=== PATIENT | male | born 1945 | race Caucasian/White ===

== ENCOUNTER 2017-02-22 18:02 | Inpatient (IN) | payer MEDICARE, OTHER ==
[~2017-02-22] VITALS: Ht 177.8 cm; Wt 99.0 kg
[~2017-02-22 18:02] MED LIST: ASPI81TA82 PO; ATOR40TA PO; BRIM0.2S; CARB1DRO EACH EYE; CARB25TA PO; CHOL1CAP6 PO; CLOP75TA PO; DORZ1SOL2; FENT50DI TD; LANTUSP SQ; LATA0.00 OP; LISI-363 PO; MAXI0.1S3; METHO500 PO; NAPR-576 PO; NOVOINJ SQ; OMPR20CCR PO; QUEN12.5 PO; SIME80CH CHEW; SYNT75TA PO; TAB-TAB PO; TEST200I13 IM; TRAZ300T2 PO; [UNRECOGNIZED DRUG - CODE] PO
[2017-02-22 18:03] VITALS: BP 175/89; PULSE 88; RESP 20; TEMP 97.9; O2SAT 92
[2017-02-22 19:00] VITALS: RESP 16; O2SAT 98
[2017-02-22] MEDS ORDERED: SODIUM CHLOR 0.9% 1000 ML INJ 1,000 ML IV SCH (19:08)
--- NOTE | 2017-02-22 19:10 | PD ---
HPI Chief Complaint: Skin Problem Time Seen by Provider: 19:10 Travel History International Travel<30 days: No Contact w/Intl Traveler<30days: No Traveled to known affect area: No History of Present Illness HPI 71-year-old male with PMH of COPD, DM, HTN, CVA, diminished hearing and chronic back pain presents to ED for evaluation of 2 day history of pain, redness and swelling of the left upper extremity. Patient states that he thinks he was bitten by a bug or possibly scraped by a plant. He endorses swelling and redness of the left upper extremity. Denies fever, chills, chest pain, shortness of breath, abdominal pain, nausea or vomiting, numbness, tingling, weakness or limitations to ROM. He states that he was seen at the [facility] 2 days ago and provided a prescription for Bactrim. He has been compliant with the medication but his symptoms have worsened. PFSH Past Medical History Hx Anticoagulant Therapy: Yes Anxiety: Yes Depression: Yes Cancer: No Cardiovascular Problems: Yes High Cholesterol: Yes COPD: Yes Cerebrovascular Accident: Yes Diabetes: Yes Patient Takes Glucophage: No Diminished Hearing: Yes (BILATERAL HEARING AIDS) Endocrine: Yes GERD: Yes Glaucoma: Yes Genitourinary: No Hypertension: Yes Immune Disorder: No Implanted Vascular Access Dvce: Yes Musculoskeletal: Yes (CHRONIC BACK PAIN) Neurologic: No Psychiatric: Yes Reproductive: No Respiratory: Yes Past Surgical History Body Medical Devices: IM NAILING R TIB Eye Surgery: Yes Oral Surgery: Yes (DENTAL IMPLANTS) Tonsillectomy: Yes Other Surgery: Yes (PINEAL CYST REMOVED/DEVIATED SEPTUM) Social History Alcohol Use: No Tobacco Use: No Substance Use: No Allergies-Medications (Allergen,Severity, Reaction): Coded Allergies: No Known Allergies (Verified , 02/22/17) Reported Meds & Prescriptions Reported Meds & Active Scripts Active Reported Brimonidine Opth Drops (Brimonidine Tartrate) 0.2% Soln 1 Drop LEFT EYE BID Aspir-81 (Aspirin) 81 Mg Tabdr 81 Mg PO DAILY Atorvastatin (Atorvastatin Calcium) 40 Mg Tab 40 Mg PO HS Sinemet (Carbidopa-Levodopa) 25-100 Mg Tab 1 Tab PO HS Refresh Liquigel Opth Drops (Carboxymethylcellulose Sodium Opth Drops) 1% Drops 1 Drop EACH EYE 5 TIMES A DAY Vitamin D3 (Cholecalciferol) 1,000 Unit Tab 1,000 Units PO BID Plavix (Clopidogrel Bisulfate) 75 Mg Tab 75 Mg PO DAILY Benadryl Allergy (Diphenhydramine HCl) 25 Mg Tab 25 Mg PO DAILY PRN Duragesic Patch 72 HR (Fentanyl) 50 Mcg/Hr Patch 50 Mcg T-DERMAL Q72H Remove old patch when new one placed. Novolog Inj (Insulin Aspart) 1,000 Unit/10 Ml Vial 12 Units SQ TIDAC Lantus Inj (Insulin Glargine) 1,000 Unit/10 Ml Vial 55 Units SQ DAILY IN THE MORNING Lantus Inj (Insulin Glargine) 1,000 Unit/10 Ml Vial 24 Units SQ HS Lisinopril 40 Mg Tab 40 Mg PO BID Robaxin (Methocarbamol) 500 Mg Tab 500 Mg PO HS Multi Vitamin (Multiple Vitamin) 1 Tab Tab 1 Tab PO DAILY Naprosyn (Naproxen) 500 Mg Tab 500 Mg PO BID Omeprazole 20 Mg Tab 20 Mg PO DAILY Simethicone 80 Mg Chw 80 Mg CHEW DAILY PRN Levothyroxine (Levothyroxine Sodium) 75 Mcg Tab 75 Mcg PO DAILY Testosterone Enanthate Inj (Testosterone Enanthate) 200 Mg/Ml Inj 200 Mg IM Q30D Trazodone (Trazodone HCl) 300 Mg Tab 300 Mg PO HS Bactrim DS (Sulfamethoxazole-Trimethoprim) 800-160 Mg Tab 1 Tab PO BID Review of Systems Except as stated in HPI: all other systems reviewed are Neg Physical Exam Narrative GENERAL: Well-nourished, well-developed pleasant, nontoxic-appearing white male in no acute distress.. SKIN: Focused skin assessment warm/dry. There is a subcentimeter crusted wound on the dorsal aspect of the left hand. HEAD: Normocephalic. EYES: No scleral icterus. No injection or drainage. NECK: Supple, trachea midline. No JVD or lymphadenopathy. CARDIOVASCULAR: Regular rate and rhythm without murmurs, gallops, or rubs. RESPIRATORY: Breath sounds equal bilaterally. No accessory muscle use. GASTROINTESTINAL: Abdomen soft, non-tender, nondistended. MUSCULOSKELETAL: No cyanosis, or edema. FOCUSED LEFT UPPER EXTREMITY EXAM: 2+ radial pulse. Tender erythema and edema of the hand extending to the mid forearm. Compartments of the forearm are firm but not tense. There is mild to moderate lymphadenopathy in the left axilla. Patient retains full, active, painless range of motion of the extremity. Strong finger to thumb opposition on each digit. Sensation intact to light touch distally. Cap refill less than 2 seconds. BACK: Nontender without obvious deformity. No CVA tenderness. Data Data Last Documented VS Vital Signs Date Time Temp Pulse Resp B/P Pulse Ox O2 Delivery O2 Flow Rate FiO2 02/22/17 19:05 16 02/22/17 19:00 98 Room Air 02/22/17 18:03 97.9 88 175/89 Orders Complete Blood Count With Diff (02/22/17 19:08) Comprehensive Metabolic Panel (02/22/17 19:08) Urinalysis - C+S If Indicated (02/22/17 19:08) Iv Access Insert/Monitor (02/22/17 19:08) Ecg Monitoring (02/22/17 19:08) Oximetry (02/22/17 19:08) Sodium Chlor 0.9% 1000 Ml Inj (Ns 1000 M (02/22/17 19:08) Sodium Chloride 0.9% Flush (Ns Flush) (02/22/17 19:15) Lactic Acid (02/22/17 19:08) Vancomycin Inj (Vancomycin Inj) (02/22/17 19:18) Labs Laboratory Tests Test 02/22/17 02/22/17 02/22/17 19:20 19:30 19:45 Lactic Acid Level 1.0 mmol/L White Blood Count 6.7 TH/MM3 Red Blood Count 4.92 MIL/MM3 Hemoglobin 14.0 GM/DL Hematocrit 42.0 % Mean Corpuscular Volume 85.4 FL Mean Corpuscular Hemoglobin 28.6 PG Mean Corpuscular Hemoglobin 33.5 % Concent Red Cell Distribution Width 14.0 % Platelet Count 142 TH/MM3 Mean Platelet Volume 10.5 FL Neutrophils (%) (Auto) 75.9 % Lymphocytes (%) (Auto) 9.2 % Monocytes (%) (Auto) 8.6 % Eosinophils (%) (Auto) 5.4 % Basophils (%) (Auto) 0.9 % Neutrophils # (Auto) 5.1 TH/MM3 Lymphocytes # (Auto) 0.6 TH/MM3 Monocytes # (Auto) 0.6 TH/MM3 Eosinophils # (Auto) 0.4 TH/MM3 Basophils # (Auto) 0.1 TH/MM3 CBC Comment DIFF FINAL Differential Comment Sodium Level 140 MEQ/L Potassium Level 4.1 MEQ/L Chloride Level 104 MEQ/L Carbon Dioxide Level 28.7 MEQ/L Anion Gap 7 MEQ/L Blood Urea Nitrogen 16 MG/DL Creatinine 1.31 MG/DL Estimat Glomerular Filtration 54 ML/MIN Rate Random Glucose 126 MG/DL Calcium Level 8.4 MG/DL Total Bilirubin 0.3 MG/DL Aspartate Amino Transf 15 U/L (AST/SGOT) Alanine Aminotransferase 28 U/L (ALT/SGPT) Alkaline Phosphatase 88 U/L Total Protein 6.6 GM/DL Albumin 3.5 GM/DL Urine Color YELLOW Urine Turbidity CLEAR Urine pH 7.0 Urine Specific [place] 1.027 Urine Protein 30 mg/dL Urine Glucose (UA) 150 mg/dL Urine Ketones NEG mg/dL Urine Occult Blood NEG Urine Nitrite NEG Urine Bilirubin NEG Urine Urobilinogen 2.0 MG/DL Urine Leukocyte Esterase NEG Urine RBC LESS THAN 1 /hpf Urine WBC 1 /hpf Urine Squamous Epithelial <1 /hpf Cells Urine Mucus FEW /lpf Microscopic Urinalysis Comment CULT NOT INDICATED MDM Medical Decision Making Medical Screen Exam Complete: Yes Emergency Medical Condition: Yes Differential Diagnosis Abscess versus cellulitis versus compartment syndrome versus sepsis versus other Narrative Course 71-year-old male with PMH of COPD, DM, HTN, CVA, diminished hearing and chronic back pain presents to ED for evaluation of 2 day history of pain, redness and swelling of the left upper extremity. Patient states that he thinks he was bitten by a bug or possibly scraped by a plant. Denies fever, chills, chest pain, SOB, abdominal pain, nausea or vomiting, numbness, tingling, weakness or limitations to ROM of the LUE. [facility] states [facility] a [facility] for B[facility], but symptoms have worsened despite compliance with the abx. Vitals reviewed. Physical exam revealed a nontoxic- appearing white male in no acute distress. There is a subcentimeter crusted wound on the dorsal aspect of the LEFT hand. There is a 2+ radial pulse and tender erythema and edema of the LEFT hand extending to the mid forearm. Compartments of the forearm are firm but not tense. There is mild to moderate LAD in the left axilla. Patient retains full, active, painless range of motion of the extremity. Strong finger to thumb opposition on each digit. Neurovascularly intact. IV was established. Labs were drawn. Patient was administered a liter of normal saline and 1 g of vancomycin. CBC: WBC 6.7, 75.9% neutrophils. Hemoglobin 14.0 CMP: BUN 16, creatinine 1.31 Lactic acid: Lactic 1.0 UA: No culture indicated Given the patient's failed outpatient treatment I feel that observation admission and continued antibiotics are warranted at this time. I discussed this plan of care with the patient who is agreeable. I spoke with Dr. Kim who agrees to accept this patient for observation on the medicine service. Please see medicine notes for disposition. Diagnosis Primary Impression: Cellulitis of left upper extremity Nora Cochran Feb 22, 2017 19:10
[2017-02-22] MEDS ORDERED: SODIUM CHLORIDE 0.9% FLUSH 10 ML FLUSH IV FLUSH PRN ×2 (19:15→21:00)
[2017-02-22] MEDS ORDERED: VANCOMYCIN INJ 1,000 MG in SODIUM CHLOR 0.9% 250 ML INJ 250 ML IV STA (19:18)
[2017-02-22 19:45] VITALS: BP 165/78; PULSE 76; RESP 20; O2SAT 94
[2017-02-22] MEDS ORDERED: TRAZ300T2 PO (19:51)
[2017-02-22] MEDS ORDERED: BACT800T5 PO (19:51)
[2017-02-22] MEDS ORDERED: SIME80CH CHEW (19:51)
[2017-02-22] MEDS ORDERED: TEST200I13 IM (19:51)
[2017-02-22] MEDS ORDERED: OMEP20TA PO (19:51)
[2017-02-22] MEDS ORDERED: LEVO75TA3 PO (19:51)
[2017-02-22] MEDS ORDERED: LANTUS2P SQ ×2 (19:52)
[2017-02-22] MEDS ORDERED: LISI40TA PO (19:52)
[2017-02-22] MEDS ORDERED: BENA25TA3 PO (19:52)
[2017-02-22] MEDS ORDERED: FENT50T T-DERMAL (19:52)
[2017-02-22] MEDS ORDERED: PLAV75TA29 PO (19:52)
[2017-02-22] MEDS ORDERED: NOVOLOGP2 SQ (19:52)
[2017-02-22] MEDS ORDERED: METH50TA2 PO (19:52)
[2017-02-22] MEDS ORDERED: MULT-135 PO (19:52)
[2017-02-22] MEDS ORDERED: NAPR500 PO (19:52)
[2017-02-22] MEDS ORDERED: ROBA500T PO (19:52)
[2017-02-22] MEDS ORDERED: VITA100018 PO (19:52)
[2017-02-22 19:53] LABS: AUTOMATED NEUTROPHIL # 5.1 TH/MM3 (1.8-7.7); BASOPHIL # 0.1 TH/MM3 (0-0.2); BASOPHIL % 0.9 % (0.0-2.0); EOSINOPHIL # 0.4 TH/MM3 (0-0.4); EOSINOPHIL % 5.4 % (0.0-4.0); HEMO FLAGS DIFF FINAL; LYMPH % 9.2 % (9.0-44.0); LYMPHOCYTE # 0.6 TH/MM3 (1.0-4.8); MEAN CELL VOLUME 85.4 FL (80.0-100.0); MEAN CORPUSCULAR HEMOGLOBIN 28.6 PG (27.0-34.0); MEAN CORPUSCULAR HGB CONC 33.5 % (32.0-36.0); MONO % 8.6 % (0.0-8.0); NEUT % 75.9 % (16.0-70.0); PLATELET COUNT 142 TH/MM3 (150-450); RED BLOOD COUNT 4.92 MIL/MM3 (4.50-5.90); WHITE BLOOD COUNT 6.7 TH/MM3 (4.0-11.0)
[2017-02-22] MEDS ORDERED: ASPI81TA81 PO (19:55)
[2017-02-22] MEDS ORDERED: CARB1DRO EACH EYE (19:55)
[2017-02-22] MEDS ORDERED: ATOR40TA16 PO (19:55)
[2017-02-22] MEDS ORDERED: SINE25TA PO (19:55)
[2017-02-22] MEDS ORDERED: BRIM0.2S4 LEFT EYE (20:04)
[2017-02-22 20:14] LABS: BLOOD, URINE NEG (NEG); COMMENT (UR) CULT NOT INDICATED; CULTURE IF INDICATED CULT NOT INDICATED; GLUCOSE,URINE 150 mg/dL (NEG); KETONE, URINE NEG (NEG); MUCUS URINE FEW /lpf (OCC); NITRITE,URINE NEG (NEG); SQUAMOUS EPITHELIAL CELL URINE <1 /hpf (0-5); URINE COLOR YELLOW (YELLW/STRAW)
[2017-02-22 20:17] LABS: ANION GAP 7 MEQ/L (5-15); AST (GOT) 15 U/L (15-37); BICARBONATE 28.7 MEQ/L (21.0-32.0); BLOOD UREA NITROGEN 16 MG/DL (7-18); CHLORIDE 104 MEQ/L (98-107); GLOMERULAR FILTRATION RATE 54 ML/MIN (>89); POTASSIUM 4.1 MEQ/L (3.5-5.1); SODIUM (NA) 140 MEQ/L (136-145)
[2017-02-22 20:20] LABS: ALKALINE PHOSPHATASE 88 U/L (45-117); ALT (GPT) 28 U/L (12-78); TOTAL BILIRUBIN ADULT 0.3 MG/DL (0.2-1.0)
--- NOTE | 2017-02-22 20:56 | PD ---
Data Data Last Documented VS Vital Signs Date Time Temp Pulse Resp B/P Pulse Ox O2 Delivery O2 Flow Rate FiO2 02/22/17 19:45 76 20 165/78 94 Room Air 02/22/17 18:03 97.9 Orders Complete Blood Count With Diff (02/22/17 19:08) Comprehensive Metabolic Panel (02/22/17 19:08) Urinalysis - C+S If Indicated (02/22/17 19:08) Iv Access Insert/Monitor (02/22/17 19:08) Ecg Monitoring (02/22/17 19:08) Oximetry (02/22/17 19:08) Sodium Chlor 0.9% 1000 Ml Inj (Ns 1000 M (02/22/17 19:08) Sodium Chloride 0.9% Flush (Ns Flush) (02/22/17 19:15) Lactic Acid (02/22/17 19:08) Vancomycin Inj (Vancomycin Inj) (02/22/17 19:18) Admit Order (Ed Use Only) (02/22/17 20:54) Labs Laboratory Tests Test 02/22/17 02/22/17 02/22/17 19:20 19:30 19:45 Lactic Acid Level 1.0 mmol/L White Blood Count 6.7 TH/MM3 Red Blood Count 4.92 MIL/MM3 Hemoglobin 14.0 GM/DL Hematocrit 42.0 % Mean Corpuscular Volume 85.4 FL Mean Corpuscular Hemoglobin 28.6 PG Mean Corpuscular Hemoglobin 33.5 % Concent Red Cell Distribution Width 14.0 % Platelet Count 142 TH/MM3 Mean Platelet Volume 10.5 FL Neutrophils (%) (Auto) 75.9 % Lymphocytes (%) (Auto) 9.2 % Monocytes (%) (Auto) 8.6 % Eosinophils (%) (Auto) 5.4 % Basophils (%) (Auto) 0.9 % Neutrophils # (Auto) 5.1 TH/MM3 Lymphocytes # (Auto) 0.6 TH/MM3 Monocytes # (Auto) 0.6 TH/MM3 Eosinophils # (Auto) 0.4 TH/MM3 Basophils # (Auto) 0.1 TH/MM3 CBC Comment DIFF FINAL Differential Comment Sodium Level 140 MEQ/L Potassium Level 4.1 MEQ/L Chloride Level 104 MEQ/L Carbon Dioxide Level 28.7 MEQ/L Anion Gap 7 MEQ/L Blood Urea Nitrogen 16 MG/DL Creatinine 1.31 MG/DL Estimat Glomerular Filtration 54 ML/MIN Rate Random Glucose 126 MG/DL Calcium Level 8.4 MG/DL Total Bilirubin 0.3 MG/DL Aspartate Amino Transf 15 U/L (AST/SGOT) Alanine Aminotransferase 28 U/L (ALT/SGPT) Alkaline Phosphatase 88 U/L Total Protein 6.6 GM/DL Albumin 3.5 GM/DL Urine Color YELLOW Urine Turbidity CLEAR Urine pH 7.0 Urine Specific [place] 1.027 Urine Protein 30 mg/dL Urine Glucose (UA) 150 mg/dL Urine Ketones NEG mg/dL Urine Occult Blood NEG Urine Nitrite NEG Urine Bilirubin NEG Urine Urobilinogen 2.0 MG/DL Urine Leukocyte Esterase NEG Urine RBC LESS THAN 1 /hpf Urine WBC 1 /hpf Urine Squamous Epithelial <1 /hpf Cells Urine Mucus FEW /lpf Microscopic Urinalysis Comment CULT NOT INDICATED MDM Medical Record Reviewed: Yes Supervised Visit with SEPIDEH: Yes Interpretation(s) Last Impressions Upper Extremity Ultrasound 02/22/17 0000 Signed Impressions: Service Date/Time: Wednesday, February 22, 2017 23:14 - CONCLUSION: There is evidence of DVT with occlusive thrombus involving the left subclavian and left axillary veins. Tyson Avelar MD Narrative Course I, Dr. Washington, have reviewed the advance practice practitioner's documentation and am in agreement, met with the patient face to face, made the diagnosis, and the medical decision making was done by me. The patient was initially evaluated by Nora, please see her complete history and physical. *My assessment and Findings: The patient is a 71-year-old male who presents to [facility] emergency Department with a cellulitis involving the left hand and forearm as been managed as an outpatient by the [facility] with a course of Bactrim. The patient reports that he believes that it began as a small area that was possibly an insect bite versus scratch from a plant. He reports that the symptoms have worsened in spite of treatment with the antibiotic previously prescribed by the [facility]. Studies were ordered. The patient was started on IV antibiotic. The patient's examination is remarkable for redness, warmth, tenderness of the left forearm suspicious for cellulitis. Given the patient's failure of treatment with outpatient antibiotic regimen, the patient will be admitted to the hospital for continued evaluation and treatment. Diagnosis Primary Impression: Cellulitis of left upper extremity Additional Impression: Swelling of left upper extremity Admitting Information Admitting Physician Requests: Admit Sheela Washington MD Feb 22, 2017 20:56
[2017-02-22] MEDS ORDERED: TEMAZEPAM 15 MG CAP PO PRN (21:00)
[2017-02-22] MEDS ORDERED: NALOXONE HCL 0.4 MG/ML AMP IV PRN (21:00)
[2017-02-22] MEDS: SODIUM CHLORIDE 0.9% FLUSH 10 ML FLUSH IV FLUSH SCH (21:00)
[2017-02-22] MEDS ORDERED: DEXTROSE 50% IN WATER 50 ML VIAL(D50) IV PUSH PRN (21:00)
[2017-02-22] MEDS ORDERED: ACETAMINOPHEN 325 MG TAB PO PRN (21:00)
[2017-02-22] MEDS: INSULIN ASPART SUPPLEMENTAL SCALE SQ SCH (21:00)
[2017-02-22] MEDS ORDERED: GLUCAGON 1 MG/ML VIAL OTHER PRN (21:00)
[2017-02-22] MEDS ORDERED: ONDANSETRON HCL 4 MG/2 ML VIAL IVP PRN (21:00)
--- NOTE | 2017-02-22 21:00 | HHI.HP ---
[facility] Service [facility] Primary [facility] Physician [facility] Admission Diagnosis Cellulitis failed outpt managment Diagnoses: (1) Cellulitis of left upper extremity (2) DM (diabetes mellitus) (3) HTN (hypertension) (4) COPD (chronic obstructive pulmonary disease) (5) History of TIA (transient ischemic attack) (6) Hypothyroidism (7) Glaucoma Chief Complaint: left arm redness, swollen and painful Travel History International Travel<30 Days: No Contact w/Intl Traveler <30 Da: No Traveled to Known Affected Are: No History of Present Illness 71-year-old male with a history of diabetes type 2, CVA presented to the ED for evaluation of the history of worsening painful and swollen left upper extremity. Patient states the morning of Thursday he may have been bitten by a bug versus scrub versus scrapped by a plant. And the following morning he noticed a blister on his arm which progresses to swollen painful and redness with extension of erythema to his forearm on 02/20/16 [facility] and prescribed a by mouth Bactrim DS for which he took 1 tablet twice a day 2 days however without any improvement. He has no numbness or tingling associated. He also denies any febrile episode Review of Systems Other 12 systems reviewed and are negative except for the one mentioned in history of present illness Past Family Social History Past Medical History DM Glaucoma GERD Hypothyroidism HTN h/o TIA COPD Past Surgical History IM NAILING R TIB b/l eye surgery Deviated nasal septum Pilonidal cyst Reported Medications Brimonidine Opth Drops (Brimonidine Tartrate) 0.2% Soln 1 Drop LEFT EYE BID Aspir-81 (Aspirin) 81 Mg Tabdr 81 Mg PO DAILY Atorvastatin (Atorvastatin Calcium) 40 Mg Tab 40 Mg PO HS Sinemet (Carbidopa-Levodopa) 25-100 Mg Tab 1 Tab PO HS Refresh Liquigel Opth Drops (Carboxymethylcellulose Sodium Opth Drops) 1% Drops 1 Drop EACH EYE 5 TIMES A DAY Vitamin D3 (Cholecalciferol) 1,000 Unit Tab 1,000 Units PO BID Plavix (Clopidogrel Bisulfate) 75 Mg Tab 75 Mg PO DAILY Benadryl Allergy (Diphenhydramine HCl) 25 Mg Tab 25 Mg PO DAILY PRN Duragesic Patch 72 HR (Fentanyl) 50 Mcg/Hr Patch 50 Mcg T-DERMAL Q72H Remove old patch when new one placed. Novolog Inj (Insulin Aspart) 1,000 Unit/10 Ml Vial 12 Units SQ TIDAC Lantus Inj (Insulin Glargine) 1,000 Unit/10 Ml Vial 55 Units SQ DAILY IN THE MORNING Lantus Inj (Insulin Glargine) 1,000 Unit/10 Ml Vial 24 Units SQ HS Lisinopril 40 Mg Tab 40 Mg PO BID Robaxin (Methocarbamol) 500 Mg Tab 500 Mg PO HS Multi Vitamin (Multiple Vitamin) 1 Tab Tab 1 Tab PO DAILY Naprosyn (Naproxen) 500 Mg Tab 500 Mg PO BID Omeprazole 20 Mg Tab 20 Mg PO DAILY Simethicone 80 Mg Chw 80 Mg CHEW DAILY PRN Levothyroxine (Levothyroxine Sodium) 75 Mcg Tab 75 Mcg PO DAILY Testosterone Enanthate Inj (Testosterone Enanthate) 200 Mg/Ml Inj 200 Mg IM Q30D Trazodone (Trazodone HCl) 300 Mg Tab 300 Mg PO HS Bactrim DS (Sulfamethoxazole-Trimethoprim) 800-160 Mg Tab 1 Tab PO BID Allergies: Coded Allergies: No Known Allergies (Verified , 02/22/17) Social History Alcohol Use: No Tobacco Use: No Substance Use: No Physical Exam Vital Signs Vital Signs Date Time Temp Pulse Resp B/P Pulse Ox O2 Delivery O2 Flow Rate FiO2 02/22/17 19:45 76 20 165/78 94 Room Air 02/22/17 19:05 16 02/22/17 19:00 16 98 Room Air 02/22/17 18:03 97.9 88 20 175/89 92 Room Air Physical Exam GENERAL: This is a well-nourished, well-developed patient, in no apparent distress. SKIN:Tender erythema and edema of the hand extending to the mid forearm. Compartments of the forearm are firm but not tense. There is mild to moderate lymphadenopathy in the left axilla HEAD: Atraumatic. Normocephalic. No temporal or scalp tenderness. EYES: Pupils equal round and reactive. Extraocular motions intact. No scleral icterus. No injection or drainage. ENT: Nose without bleeding, purulent drainage or septal hematoma. Throat without erythema, tonsillar hypertrophy or exudate. Uvula midline. Airway patent. NECK: Trachea midline. No JVD or lymphadenopathy. Supple, nontender, no meningeal signs. CARDIOVASCULAR: Regular rate and rhythm without murmurs, gallops, or rubs. RESPIRATORY: Clear to auscultation. Breath sounds equal bilaterally. No wheezes , rales, or rhonchi. GASTROINTESTINAL: Abdomen soft, non-tender, nondistended. No hepato-splenomegaly , or palpable masses. No guarding. MUSCULOSKELETAL: Extremities without clubbing, cyanosis, or edema. No joint tenderness, effusion, or edema noted. No calf tenderness. Negative Homans sign bilaterally. NEUROLOGICAL: Awake and alert. Cranial nerves II through XII intact. Motor and sensory grossly within normal limits. Five out of 5 muscle strength in all muscle groups. Normal speech. Laboratory Laboratory Tests Test 02/22/17 02/22/17 02/22/17 19:20 19:30 19:45 Lactic Acid Level 1.0 White Blood Count 6.7 Red Blood Count 4.92 Hemoglobin 14.0 Hematocrit 42.0 Mean Corpuscular Volume 85.4 Mean Corpuscular Hemoglobin 28.6 Mean Corpuscular Hemoglobin 33.5 Concent Red Cell Distribution Width 14.0 Platelet Count 142 Mean Platelet Volume 10.5 Neutrophils (%) (Auto) 75.9 Lymphocytes (%) (Auto) 9.2 Monocytes (%) (Auto) 8.6 Eosinophils (%) (Auto) 5.4 Basophils (%) (Auto) 0.9 Neutrophils # (Auto) 5.1 Lymphocytes # (Auto) 0.6 Monocytes # (Auto) 0.6 Eosinophils # (Auto) 0.4 Basophils # (Auto) 0.1 CBC Comment DIFF FINAL Differential Comment Sodium Level 140 Potassium Level 4.1 Chloride Level 104 Carbon Dioxide Level 28.7 Anion Gap 7 Blood Urea Nitrogen 16 Creatinine 1.31 Estimat Glomerular Filtration 54 Rate Random Glucose 126 Calcium Level 8.4 Total Bilirubin 0.3 Aspartate Amino Transf 15 (AST/SGOT) Alanine Aminotransferase 28 (ALT/SGPT) Alkaline Phosphatase 88 Total Protein 6.6 Albumin 3.5 Urine Color YELLOW Urine Turbidity CLEAR Urine pH 7.0 Urine Specific [place] 1.027 Urine Protein 30 Urine Glucose (UA) 150 Urine Ketones NEG Urine Occult Blood NEG Urine Nitrite NEG Urine Bilirubin NEG Urine Urobilinogen 2.0 Urine Leukocyte Esterase NEG Urine RBC LESS THAN 1 Urine WBC 1 Urine Squamous Epithelial <1 Cells Urine Mucus FEW Microscopic Urinalysis Comment CULT NOT INDICATED Result Diagram: 02/22/17192902/22/171929 Assessment and Plan Problem List: (1) Cellulitis of left upper extremity ICD Code: L03.114 Status: Acute (2) DM (diabetes mellitus) ICD Code: E11.9 Status: Acute (3) HTN (hypertension) ICD Code: I10 Status: Acute (4) Hypothyroidism ICD Code: E03.9 Status: Acute (5) History of TIA (transient ischemic attack) ICD Code: Z86.73 Status: Acute (6) COPD (chronic obstructive pulmonary disease) ICD Code: J44.9 Status: Acute (7) Acute renal failure ICD Code: N17.9 Status: Acute Assessment and Plan 71-year-old male with Cellulitis left upper extremity Failed outpatient therapy -Status post vancomycin 1 in ED -Continue vancomycin and start Rocephin IV daily pending culture report -Check Doppler of upper extremity to rule out thrombosis -Pain management accordingly Mild acute renal failure Gentle IV fluid hydration, monitor BMP History of diabetes type 2 Resume outpatient regimen, start insulin sliding scale with fingerstick blood glucose monitoring Other chronic medical conditions including hyperlipidemia, CAD, glaucoma, CVA: Resume outpatient medications DVT prophylaxis: Bilateral SCDs Code Status Full code Discussed Condition With Patient, ED physician Flynn Kim MD Feb 22, 2017 21:00
[2017-02-22 22:04] VITALS: BP 163/81; PULSE 67; RESP 16; TEMP 97.6; O2SAT 93
[2017-02-22] MEDS ORDERED: SIMETHICONE 80 MG CHEWABLE TAB CHEW PRN (22:30)
[2017-02-22] MEDS ORDERED: Vancomycin Consult Pharmacy 1 EA OTHER SCH (22:45)
[2017-02-22] MEDS ORDERED: VANCOMYCIN 1,000 MG/NS 250 ML IV ONE ×2 (23:00)
[2017-02-22] MEDS ORDERED: fentaNYL 50 MCG/HR PATCH T-DERMAL SCH (23:00)
[2017-02-22] MEDS ORDERED: REMOVE OLD PATCH-FENTANYL T-DERMAL SCH (23:00)
[2017-02-22] MEDS: fentaNYL 50 MCG/HR PATCH T-DERMAL SCH (23:02)
[2017-02-22] MEDS: cefTRIAXone INJ 2,000 MG in SODIUM CHLORIDE 0.9% INJ 100 ML IV SCH (23:03)
--- NOTE | 2017-02-22 23:49 | RADRPT ---
EXAM DATE/TIME: 02/22/2017 23:14 [place] COMPARISON: No previous studies available for comparison. INDICATIONS : Left arm swelling. MEDICAL HISTORY : Chronic obstructive pulmonary disease. Gastroesophageal reflux disease. Hypercholesterolemia. Thyroid disease. Glaucoma. Hearing loss. Cerebrovascular accident. Myocardial infarction. Anticoagulant ther apy. Hypertension. Sleep apnea. Chronic back pain. Diabetes. Depression. Anxiety. Blood transfusion. SURGICAL HISTORY : Tonsillectomy. Right leg surgery. Pineal cyst removal ENCOUNTER: Initial ACUITY: 4 - 6 days PAIN SCORE: 2/10 LOCATION: Left arm. FINDINGS: On today's examination there is evidence of occlusive thrombus involving the left subclavian and left axillary veins. This is characteristic of DVT. The jugular vein is patent. The brachial vein in the left upper arm is patent. The ulnar and radial veins are patent. CONCLUSION: There is evidence of DVT with occlusive thrombus involving the left subclavian and left axillary vein celina Avelar MD on February 22, 2017 at 23:46 Board Certified Radiologist. This report was verified electronically.
[2017-02-23 04:37] VITALS: BP 169/79; PULSE 68; RESP 18; TEMP 97.7; O2SAT 92
[2017-02-23] MEDS: INSULIN ASPART SUPPLEMENTAL SCALE SQ SCH ×4 (06:11→20:55)
[2017-02-23] MEDS: ARTIFICIAL TEARS OPTH SOLN 15 ML BTL EACH EYE SCH ×5 (06:11→20:57)
[2017-02-23 06:41] LABS: AUTOMATED NEUTROPHIL # 3.8 TH/MM3 (1.8-7.7); BASOPHIL # 0.1 TH/MM3 (0-0.2); BASOPHIL % 1.1 % (0.0-2.0); EOSINOPHIL # 0.4 TH/MM3 (0-0.4); EOSINOPHIL % 6.7 % (0.0-4.0); HEMATOCRIT 40.9 % (39.0-51.0); HEMO FLAGS DIFF FINAL; LYMPH % 15.1 % (9.0-44.0); LYMPHOCYTE # 0.9 TH/MM3 (1.0-4.8); MEAN CELL VOLUME 86.2 FL (80.0-100.0); MEAN CORPUSCULAR HGB CONC 32.5 % (32.0-36.0); MONO % 9.8 % (0.0-8.0); NEUT % 67.3 % (16.0-70.0); PLATELET COUNT 120 TH/MM3 (150-450); RED BLOOD COUNT 4.75 MIL/MM3 (4.50-5.90); RED CELL DISTRIBUTION WIDTH 14.2 % (11.6-17.2); WHITE BLOOD COUNT 5.7 TH/MM3 (4.0-11.0)
[2017-02-23 07:04] LABS: ALT (GPT) 27 U/L (12-78); ANION GAP 6 MEQ/L (5-15); AST (GOT) 17 U/L (15-37); BICARBONATE 25.6 MEQ/L (21.0-32.0); BLOOD UREA NITROGEN 14 MG/DL (7-18); CHLORIDE 105 MEQ/L (98-107); GLOMERULAR FILTRATION RATE 66 ML/MIN (>89); SODIUM (NA) 137 MEQ/L (136-145)
[2017-02-23 07:06] LABS: ALKALINE PHOSPHATASE 80 U/L (45-117); TOTAL BILIRUBIN ADULT 0.3 MG/DL (0.2-1.0)
[2017-02-23 08:00] VITALS: BP 195/95; PULSE 70; RESP 20; TEMP 95.7; O2SAT 93
[2017-02-23] MEDS: ENOXAPARIN SODIUM 100 MG/ML SYRINGE SQ SCH ×2 (08:17→20:54)
[2017-02-23] MEDS: LISINOPRIL 20 MG TAB PO SCH ×2 (08:18→20:57)
[2017-02-23] MEDS: PANTOPRAZOLE SOD 20 MG DELAYED RELEASE TAB PO SCH (08:18)
[2017-02-23] MEDS: MULTIVITAMIN TAB PO SCH (08:18)
[2017-02-23] MEDS: SODIUM CHLORIDE 0.9% FLUSH 10 ML FLUSH IV FLUSH SCH ×2 (08:18→20:58)
[2017-02-23] MEDS: BRIMONIDINE TARTRATE 0.2% OPHT SOLN 5 ML BTL LEFT EYE SCH ×2 (08:19→20:57)
[2017-02-23] MEDS: INSULIN DETEMIR 100 UNITS/ML VIAL SQ SCH ×2 (08:20→20:55)
--- NOTE | 2017-02-23 08:56 | HHI.PR ---
Subjective Remarks resting comfortably with no distress. denies pain and no fever. Objective Vitals Vital Signs Date Time Temp Pulse Resp B/P Pulse Ox O2 Delivery O2 Flow Rate FiO2 02/23/17 08:00 95.7 70 20 195/95 93 02/23/17 04:37 97.7 68 18 169/79 92 02/22/17 22:04 97.6 67 16 163/81 93 02/22/17 19:45 76 20 165/78 94 Room Air 02/22/17 19:05 16 02/22/17 19:00 16 98 Room Air 02/22/17 18:03 97.9 88 20 175/89 92 Room Air I/O 02/22/17 02/22/17 02/22/17 02/23/17 02/23/17 02/23/17 07:00 15:00 23:00 07:00 15:00 23:00 Intake Total 240 ml Balance 240 ml Intake Oral 240 ml # Voids 1 Result Diagram: 02/23/17 0530 02/23/17 0530 Imaging Last Impressions Upper Extremity Ultrasound 02/22/17 0000 Signed Impressions: Service Date/Time: Wednesday, February 22, 2017 23:14 - CONCLUSION: There is evidence of DVT with occlusive thrombus involving the left subclavian and left axillary veins. Tyson Avelar MD Objective Remarks GENERAL: This is a well-nourished, well-developed patient, in no apparent distress. CARDIOVASCULAR: Regular rate and regular rhythm without murmurs, gallops, or rubs. RESPIRATORY: Clear to auscultation. Breath sounds equal bilaterally. No wheezes , rales, or rhonchi. GASTROINTESTINAL: Abdomen soft, non-tender, nondistended. Normal, active bowel sounds MUSCULOSKELETAL: swelling, erythema over the left upper extremity NEURO: Alert & Oriented x4 to person, place, time, situation. Moves all ext x4 Procedures none Medications and IVs Current Medications Sodium Chloride (NS 1000 ml Inj) 1,000 ml @ 1,000 mls/hr Q1H IV Last administered on 02/22/17t 19:23; Start 02/22/17 at 19:08; Stop 02/22/17 at 20:07 ; Status DC Sodium Chloride 2 ml 2 ml UNSCH PRN IV FLUSH FLUSH AFTER USING IV ACCESS; Start 02/22/17 at 19:15; Stop 02/22/17 at 21:04; Status DC Vancomycin HCl/ Sodium Chloride (Vancomycin Inj/ NS 250 ml Inj) 250 ml @ 250 mls/hr ONCE STAT IV Last administered on 02/22/17 19:47; Start 02/22/17 at 19 :18; Stop 02/22/17 at 20:17; Status DC Sodium Chloride (NS Flush) 2 ml UNSCH PRN IV FLUSH FLUSH AFTER USING IV ACCESS ; Start 02/22/17 at 21:00 Sodium Chloride (NS Flush) 2 ml BID IV FLUSH Last administered on 02/23/17 08: 18; Start 02/22/17 at 21:00 Acetaminophen (Tylenol) 650 mg Q4H PRN PO TEMP > 100.4; Start 02/22/17 at 21:00 Ondansetron HCl (Zofran Inj) 4 mg Q6H PRN IVP NAUSEA OR VOMITING; Start at 21:00 Temazepam (Restoril) 15 mg HS PRN PO INSOMNIA Last administered on 02/22/17 23 :03; Start 02/22/17 at 21:00 Acetaminophen (Tylenol) 650 mg Q6H PRN PO PAIN SCALE 1 TO 2; Start 02/22/17 at 21:00 Naloxone HCl (Narcan Inj) 0.4 mg UNSCH PRN IV SEE LABEL COMMENTS; Start at 21:00 Dextrose (D50w (Vial) Inj) 25 ml UNSCH PRN IV PUSH HYPOGLYCEMIA-SEE COMMENTS; Start 02/22/17 at 21:00 Glucagon (Glucagon Inj) 1 mg UNSCH PRN OTHER HYPOGLYCEMIA-SEE COMMENTS; Start 02/22/17 at 21:00 Insulin Aspart (NovoLOG SUPPLEMENTAL SCALE) 1 ACHS SLIDING SCALE SQ Last administered on 02/23/17 06:11; Start 02/22/17 at 21:00 Aspirin (Ecotrin Ec) 81 mg DAILY PO Last administered on 02/23/17 08:18; Start 02/23/17 at 09:00 Atorvastatin Calcium (Lipitor) 40 mg HS PO ; Start 02/23/17 at 21:00 Brimonidine Tartrate (Alphagan 0.2% Opt Soln) 1 drop BID LEFT EYE Last administered on 02/23/17 08:19; Start 02/23/17 at 09:00 Carbidopa/Levodopa (Sinemet 25-100 Mg) 1 tab HS PO ; Start 02/23/17 at 21:00 Clopidogrel Bisulfate (Plavix) 75 mg DAILY PO Last administered on 02/23/17 08 :18; Start 02/23/17 at 09:00 Fentanyl (Duragesic 50 Mcg Patch.72 Hr) 50 patch Q72H T-DERMAL ; Start at 23:00; Stop 02/22/17 at 23:00; Status DC Insulin Detemir (Levemir Inj) 24 units HS SQ ; Start 02/23/17 at 21:00 Insulin Detemir (Levemir Inj) 55 units DAILY SQ Last administered on 02/23/17 08:20; Start 02/23/17 at 09:00 Methocarbamol (Robaxin) 500 mg HS PO ; Start 02/23/17 at 21:00 Multivitamins (Theragran) 1 tab DAILY PO Last administered on 02/23/17 08:18; Start 02/23/17 at 09:00 Simethicone (Mylicon Chew) 80 mg DAILY PRN CHEW GAS RETENTION; Start 02/22/17 at 22:30 Trazodone HCl (Desyrel) 300 mg HS PO ; Start 02/23/17 at 21:00 Artificial Tears (Tears Naturale Opth Soln) 1 drop 5 TIMES A DAY EACH EYE Last administered on 02/23/17 06:11; Start 02/23/17 at 06:00 Lisinopril (Prinivil) 40 mg BID PO Last administered on 02/23/17 08:18; Start 02/23/17 at 09:00 Pantoprazole Sodium (Protonix) 20 mg DAILY PO Last administered on 02/23/17 08 :18; Start 02/23/17 at 09:00 Fentanyl 1 patch 1 patch Q72H T-DERMAL Last administered on 02/22/17 23:02; Start 02/22/17 at 23:00 Pharmacy Profile Note 0 ml @ 0 mls/hr UNSCH OTHER ; Start 02/22/17 at 22:45 Vancomycin HCl 1000 mg/Sodium Chloride 250 ml @ 250 mls/hr Q24H IV ; Start at 09:00; Status UNV Ceftriaxone Sodium/Sodium Chloride (Rocephin Inj/NS Inj) 100 ml @ 200 mls/hr Q24H IV Last administered on 02/22/17 23:03; Start 02/22/17 at 23:00 Miscellaneous Information 1 1 Q72H T-DERMAL Last administered on 02/22/17 23: 00; Start 02/22/17 at 23:00 Vancomycin HCl/ Sodium Chloride (Vancomycin Inj/ NS 250 ml Inj) 250 ml @ 250 mls/hr ONCE ONCE IV Last administered on 02/22/17 23:16; Start 02/22/17 at 23 :00; Stop 02/22/17 at 23:59; Status DC Enoxaparin Sodium (Lovenox Inj) 100 mg Q12HR SQ Last administered on 02/23/17 08:17; Start 02/23/17 at 09:00 A/P Assessment and Plan A/P Cellulitis left upper extremity Failed outpatient therapy -Status post vancomycin 1 in ED -Continue vancomycin and Rocephin IV daily pending culture report -Pain management accordingly DVT of the left upper extremity left upper extremity doppler with DVT with occlusive thrombus involving the left subclavian and left axillary veins. continue with subq Lovenox- will switch to Xarelto upon discharge; anticoagulation was d/w the patient. Mild acute renal failure-improved History of diabetes type 2 Resumed outpatient regimen, start insulin sliding scale with fingerstick blood glucose monitoring history of CVA stop aspirin and plavix since he will be started on full anticoagulation DVT prophylaxis: Lovenox Shereen Thorpe MD Feb 23, 2017 08:55
[2017-02-23] MEDS ORDERED: ENALAPRILAT 1.25 MG/ML VIAL IV PUSH PRN (09:00)
[2017-02-23] MEDS ORDERED: ASPIRIN EC 81 MG TABEC PO SCH (09:00)
[2017-02-23] MEDS ORDERED: VANCOMYCIN INJ 1,000 MG in SODIUM CHLOR 0.9% 250 ML INJ 250 ML IV SCH (09:00)
[2017-02-23] MEDS ORDERED: CLOPIDOGREL 75 MG TAB PO SCH (09:00)
[2017-02-23 12:00] VITALS: BP 196/77; PULSE 85; RESP 20; TEMP 97; O2SAT 95
[2017-02-23 15:48] VITALS: BP 186/89; PULSE 90; RESP 20; TEMP 97.2; O2SAT 94
[2017-02-23 20:00] VITALS: BP 165/88; PULSE 77; RESP 18; TEMP 96.4; O2SAT 95
[2017-02-23] MEDS: CARBIDOPA/LEVODOPA 25 MG/100 MG TAB PO SCH (20:56)
[2017-02-23] MEDS: METHOCARBAMOL 500 MG TAB PO SCH (20:56)
[2017-02-23] MEDS: ATORVASTATIN 40 MG TAB PO SCH (20:56)
[2017-02-23] MEDS: traZODone HCL 100 MG TAB PO SCH (20:56)
[2017-02-23] MEDS: cefTRIAXone INJ 2,000 MG in SODIUM CHLORIDE 0.9% INJ 100 ML IV SCH (23:14)
[2017-02-24] VITALS: BP 165/80; PULSE 81; RESP 17; TEMP 96.2; O2SAT 92
[2017-02-24] MEDS: cefTRIAXone INJ 2,000 MG in SODIUM CHLORIDE 0.9% INJ 100 ML IV SCH (00:10)
[2017-02-24 04:00] VITALS: BP 169/83; PULSE 77; RESP 17; TEMP 95.6; O2SAT 95
[2017-02-24] MEDS ORDERED: VANCOMYCIN INJ 1,500 MG in SODIUM CHLORID 0.9% 500 ML INJ 500 ML IV SCH ×2 (04:00→22:00)
[2017-02-24] MEDS: ARTIFICIAL TEARS OPTH SOLN 15 ML BTL EACH EYE SCH ×5 (05:58→21:55)
[2017-02-24] MEDS: INSULIN ASPART SUPPLEMENTAL SCALE SQ SCH ×4 (06:11→21:52)
[2017-02-24 07:08] LABS: AUTOMATED NEUTROPHIL # 3.5 TH/MM3 (1.8-7.7); BASOPHIL # 0.1 TH/MM3 (0-0.2); BASOPHIL % 1.6 % (0.0-2.0); EOSINOPHIL # 0.3 TH/MM3 (0-0.4); EOSINOPHIL % 6.2 % (0.0-4.0); HEMATOCRIT 42.7 % (39.0-51.0); HEMO FLAGS DIFF FINAL; LYMPH % 13.5 % (9.0-44.0); LYMPHOCYTE # 0.7 TH/MM3 (1.0-4.8); MEAN CELL VOLUME 86.3 FL (80.0-100.0); MEAN CORPUSCULAR HEMOGLOBIN 28.2 PG (27.0-34.0); MEAN CORPUSCULAR HGB CONC 32.7 % (32.0-36.0); MONO % 11.3 % (0.0-8.0); NEUT % 67.4 % (16.0-70.0); PLATELET COUNT 127 TH/MM3 (150-450); RED BLOOD COUNT 4.95 MIL/MM3 (4.50-5.90); RED CELL DISTRIBUTION WIDTH 14.3 % (11.6-17.2); WHITE BLOOD COUNT 5.2 TH/MM3 (4.0-11.0)
[2017-02-24 07:24] VITALS: BP 167/93; PULSE 76; RESP 16; TEMP 97.9; O2SAT 95
--- NOTE | 2017-02-24 07:35 | HHI.PR ---
Subjective Remarks resting comfortably with no distress. however noted that his pulse-ox was 88-89% on RA. denies pain. no fever. d/w the RN. Objective Vitals Vital Signs Date Time Temp Pulse Resp B/P Pulse Ox O2 Delivery O2 Flow Rate FiO2 02/24/17 04:00 95.6 77 17 169/83 95 02/24/17 00:00 96.2 81 17 165/80 92 02/23/17 20:00 96.4 77 18 165/88 95 02/23/17 15:48 97.2 90 20 186/89 94 02/23/17 12:00 97.0 85 20 196/77 95 02/23/17 08:00 95.7 70 20 195/95 93 I/O 02/23/17 02/23/17 02/23/17 02/24/17 02/24/17 02/24/17 07:00 15:00 23:00 07:00 15:00 23:00 Intake Total 360 ml Balance 360 ml Intake Oral 360 ml # Voids 1 1 1 Result Diagram: 02/24/17 0558 02/23/17 0530 Imaging Last Impressions Upper Extremity Ultrasound 02/22/17 0000 Signed Impressions: Service Date/Time: Wednesday, February 22, 2017 23:14 - CONCLUSION: There is evidence of DVT with occlusive thrombus involving the left subclavian and left axillary veins. Tyson Avelra MD Objective Remarks GENERAL: This is a well-nourished, well-developed patient, in no apparent distress. CARDIOVASCULAR: Regular rate and regular rhythm without murmurs, gallops, or rubs. RESPIRATORY: Clear to auscultation. Breath sounds equal bilaterally. No wheezes , rales, or rhonchi. GASTROINTESTINAL: Abdomen soft, non-tender, nondistended. Normal, active bowel sounds MUSCULOSKELETAL: swelling, erythema over the left upper extremity NEURO: Alert & Oriented x4 to person, place, time, situation. Moves all ext x4 Procedures none Medications and IVs Current Medications Sodium Chloride (NS 1000 ml Inj) 1,000 ml @ 1,000 mls/hr Q1H IV Last administered on 02/22/17t 19:23; Start 02/22/17 at 19:08; Stop 02/22/17 at 20:07 ; Status DC Sodium Chloride 2 ml 2 ml UNSCH PRN IV FLUSH FLUSH AFTER USING IV ACCESS; Start 02/22/17 at 19:15; Stop 02/22/17 at 21:04; Status DC Vancomycin HCl/ Sodium Chloride (Vancomycin Inj/ NS 250 ml Inj) 250 ml @ 250 mls/hr ONCE STAT IV Last administered on 02/22/17 19:47; Start 02/22/17 at 19 :18; Stop 02/22/17 at 20:17; Status DC Sodium Chloride (NS Flush) 2 ml UNSCH PRN IV FLUSH FLUSH AFTER USING IV ACCESS ; Start 02/22/17 at 21:00 Sodium Chloride (NS Flush) 2 ml BID IV FLUSH Last administered on 02/23/17 20: 58; Start 02/22/17 at 21:00 Acetaminophen (Tylenol) 650 mg Q4H PRN PO TEMP > 100.4; Start 02/22/17 at 21:00 Ondansetron HCl (Zofran Inj) 4 mg Q6H PRN IVP NAUSEA OR VOMITING; Start at 21:00 Temazepam (Restoril) 15 mg HS PRN PO INSOMNIA Last administered on 02/22/17 23 :03; Start 02/22/17 at 21:00 Acetaminophen (Tylenol) 650 mg Q6H PRN PO PAIN SCALE 1 TO 2 Last administered on 02/23/17 17:49; Start 02/22/17 at 21:00 Naloxone HCl (Narcan Inj) 0.4 mg UNSCH PRN IV SEE LABEL COMMENTS; Start at 21:00 Dextrose (D50w (Vial) Inj) 25 ml UNSCH PRN IV PUSH HYPOGLYCEMIA-SEE COMMENTS; Start 02/22/17 at 21:00 Glucagon (Glucagon Inj) 1 mg UNSCH PRN OTHER HYPOGLYCEMIA-SEE COMMENTS; Start 02/22/17 at 21:00 Insulin Aspart (NovoLOG SUPPLEMENTAL SCALE) 1 ACHS SLIDING SCALE SQ Last administered on 02/23/17 20:55; Start 02/22/17 at 21:00 Aspirin (Ecotrin Ec) 81 mg DAILY PO Last administered on 02/23/17 08:18; Start 02/23/17 at 09:00; Status Hold Atorvastatin Calcium (Lipitor) 40 mg HS PO Last administered on 02/23/17 20:56 ; Start 02/23/17 at 21:00 Brimonidine Tartrate (Alphagan 0.2% Opth Soln) 1 drop BID LEFT EYE Last administered on 02/23/17 20:57; Start 02/23/17 at 09:00 Carbidopa/Levodopa (Sinemet 25-100 Mg) 1 tab HS PO Last administered on 20:56; Start 02/23/17 at 21:00 Clopidogrel Bisulfate (Plavix) 75 mg DAILY PO Last administered on 02/23/17 08 :18; Start 02/23/17 at 09:00; Status Hold Fentanyl (Duragesic 50 Mcg Patch.72 Hr) 50 patch Q72H T-DERMAL ; Start at 23:00; Stop 02/22/17 at 23:00; Status DC Insulin Detemir (Levemir Inj) 24 units HS SQ Last administered on 02/23/17 20: 55; Start 02/23/17 at 21:00 Insulin Detemir (Levemir Inj) 55 units DAILY SQ Last administered on 02/23/17 08:20; Start 02/23/17 at 09:00 Methocarbamol (Robaxin) 500 mg HS PO Last administered on 02/23/17 20:56; Start 02/23/17 at 21:00 Multivitamins (Theragran) 1 tab DAILY PO Last administered on 02/23/17 08:18; Start 02/23/17 at 09:00 Simethicone (Mylicon Chew) 80 mg DAILY PRN CHEW GAS RETENTION; Start 02/22/17 at 22:30 Trazodone HCl (Desyrel) 300 mg HS PO Last administered on 02/23/17 20:56; Start 02/23/17 at 21:00 Artificial Tears (Tears Naturale Opth Soln) 1 drop 5 TIMES A DAY EACH EYE Last administered on 02/24/17 05:58; Start 02/23/17 at 06:00 Lisinopril (Prinivil) 40 mg BID PO Last administered on 02/23/17 20:57; Start 02/23/17 at 09:00 Pantoprazole Sodium (Protonix) 20 mg DAILY PO Last administered on 02/23/17 08 :18; Start 02/23/17 at 09:00 Fentanyl 1 patch 1 patch Q72H T-DERMAL Last administered on 02/22/17 23:02; Start 02/22/17 at 23:00 Pharmacy Profile Note 0 ml @ 0 mls/hr UNSCH OTHER ; Start 02/22/17 at 22:45 Vancomycin HCl 1000 mg/Sodium Chloride 250 ml @ 250 mls/hr Q24H IV ; Start at 09:00; Status UNV Ceftriaxone Sodium/Sodium Chloride (Rocephin Inj/NS Inj) 100 ml @ 200 mls/hr Q24H IV Last administered on 02/23/17 23:14; Start 02/22/17 at 23:00 Miscellaneous Information 1 1 Q72H T-DERMAL Last administered on 02/22/17 23: 00; Start 02/22/17 at 23:00 Vancomycin HCl/ Sodium Chloride (Vancomycin Inj/ NS 250 ml Inj) 250 ml @ 250 mls/hr ONCE ONCE IV Last administered on 02/22/17 23:16; Start 02/22/17 at 23 :00; Stop 02/22/17 at 23:59; Status DC Enoxaparin Sodium (Lovenox Inj) 100 mg Q12HR SQ Last administered on 02/23/17 20:54; Start 02/23/17 at 09:00 Enalaprilat 1.25 mg 1.25 mg Q8H PRN IV PUSH SBP> OR = 180, DBP> OR = 100; Start 02/23/17 at 09:00 Vancomycin HCl/ Sodium Chloride (Vancomycin Inj/ NS 500 ml Inj) 515 ml @ 257.5 mls/ hr Q24H IV Last administered on 02/24/17 03:24; Start 02/24/17 at 04:00 Miscellaneous Information SPECIFIC LAB TO BE ... ONCE ONCE .XX ; Start 02/26 at 03:45; Stop 02/26/17 at 03:46 A/P Assessment and Plan A/P Cellulitis left upper extremity Failed outpatient therapy -Continue vancomycin and Rocephin IV daily pending culture report -Pain management accordingly DVT of the left upper extremity left upper extremity doppler with DVT with occlusive thrombus involving the left subclavian and left axillary veins. continue with subq Lovenox- . consult hematology hypoxemia; keep on oxygen to keep O2 sat > 90%- neb treatment as needed- obtain CXR will consider walk test before discharge. Mild acute renal failure-improved History of diabetes type 2 Resumed outpatient regimen, start insulin sliding scale with fingerstick blood glucose monitoring history of CVA stop aspirin and plavix since he is on full anticoagulation hypertension- not optimally controlled- continue lisinopril- one dose of procardia today. DVT prophylaxis: Shereen Pro MD Feb 24, 2017 07:35
[2017-02-24] MEDS ORDERED: RESP: ALBUTEROL 1.25 MG/3 ML NEB (PRN) NEB (07:45)
[2017-02-24] MEDS ORDERED: NIFEdipine 30 MG SUSTAINED RELEASE TAB PO ONE (07:45)
--- NOTE | 2017-02-24 07:56 | RADRPT ---
EXAM DATE/TIME: 02/24/2017 07:34 [facility] COMPARISON: CHEST SINGLE AP, July 17, 2016, 12:21. INDICATIONS : Swelling in left arm, blood clot. MEDICAL HISTORY : None. SURGICAL HISTORY : None. ENCOUNTER: Initial ACUITY: 3 days PAIN SCORE: 0/10 LOCATION: Bilateral chest FINDINGS: Portable AP view of the chest demonstrates a normal-sized cardiac silhouette. Lungs are underinflated with mild atelectasis at the lung bases. No effusion, consolidation, or pneumothorax is visualized. Bones and soft tissues demonstrate no acute finding. CONCLUSION: Underinflated examination without an acute cardiopulmonary abnormality identified. Anselmo Lord MD on February 24, 2017 at 7:53 Board Certified Radiologist. This report was verified electronically.
[2017-02-24] MEDS: INSULIN DETEMIR 100 UNITS/ML VIAL SQ SCH ×2 (08:42→21:51)
[2017-02-24] MEDS: LISINOPRIL 20 MG TAB PO SCH ×2 (08:43→21:53)
[2017-02-24] MEDS: PANTOPRAZOLE SOD 20 MG DELAYED RELEASE TAB PO SCH (08:43)
[2017-02-24] MEDS: MULTIVITAMIN TAB PO SCH (08:43)
[2017-02-24] MEDS: SODIUM CHLORIDE 0.9% FLUSH 10 ML FLUSH IV FLUSH SCH ×2 (08:43→21:54)
[2017-02-24] MEDS: BRIMONIDINE TARTRATE 0.2% OPHT SOLN 5 ML BTL LEFT EYE SCH ×2 (08:45→21:54)
[2017-02-24] MEDS: ENOXAPARIN SODIUM 100 MG/ML SYRINGE SQ SCH ×2 (08:45→21:52)
[2017-02-24 11:07] VITALS: BP 170/91; PULSE 79; RESP 18; TEMP 97.8; O2SAT 95
[2017-02-24 15:01] VITALS: BP 144/76; PULSE 81; RESP 16; TEMP 97.2; O2SAT 93
[2017-02-24 19:26] VITALS: BP 146/78; PULSE 82; RESP 20; TEMP 96.1; O2SAT 95
[2017-02-24] MEDS: ATORVASTATIN 40 MG TAB PO SCH (21:53)
[2017-02-24] MEDS: ACETAMINOPHEN 325 MG TAB PO PRN (21:53)
[2017-02-24] MEDS: METHOCARBAMOL 500 MG TAB PO SCH (21:53)
[2017-02-24] MEDS: CARBIDOPA/LEVODOPA 25 MG/100 MG TAB PO SCH (21:53)
[2017-02-24] MEDS: traZODone HCL 100 MG TAB PO SCH (21:54)
[2017-02-25 00:43] VITALS: BP 149/78; PULSE 76; RESP 20; O2SAT 97
[2017-02-25 04:52] VITALS: BP 181/79; PULSE 84; RESP 20; O2SAT 98
[2017-02-25] MEDS: INSULIN ASPART SUPPLEMENTAL SCALE SQ SCH ×2 (06:19→13:05)
[2017-02-25] MEDS: ACETAMINOPHEN 325 MG TAB PO PRN ×2 (06:19→13:03)
[2017-02-25] MEDS: ARTIFICIAL TEARS OPTH SOLN 15 ML BTL EACH EYE SCH ×2 (06:19→10:37)
[2017-02-25] MEDS ORDERED: WARFARIN SOD 5 MG TAB PO ONE (07:00)
[2017-02-25 07:02] VITALS: BP 144/84; PULSE 77; RESP 16; TEMP 97.8; O2SAT 95
--- NOTE | 2017-02-25 08:06 | HHI.PR ---
Subjective Remarks resting comfortably with no distress. denies pain. no fever. d/w the RN and no acute issues over night. Objective Vitals Vital Signs Date Time Temp Pulse Resp B/P Pulse Ox O2 Delivery O2 Flow Rate FiO2 02/25/17 07:02 97.8 77 16 144/84 95 02/25/17 04:52 84 20 181/79 98 02/25/17 00:43 76 20 149/78 97 02/24/17 19:26 96.1 82 20 146/78 95 02/24/17 15:01 97.2 81 16 144/76 93 02/24/17 11:07 97.8 79 18 170/91 95 I/O 02/24/17 02/24/17 02/24/17 02/25/17 02/25/17 02/25/17 07:00 15:00 23:00 07:00 15:00 23:00 Intake Total 50 ml Balance 50 ml Intake Oral 50 ml # Voids 4 Result Diagram: 02/24/17 0558 02/24/17 0558 Imaging Last Impressions Chest X-Ray 02/24/17 0000 Signed Impressions: Service Date/Time: Friday, February 24, 2017 07:34 - CONCLUSION: Underinflated examination without an acute cardiopulmonary abnormality identified. Anselmo Lord MD Upper Extremity Ultrasound 02/22/17 0000 Signed Impressions: Service Date/Time: Wednesday, February 22, 2017 23:14 - CONCLUSION: There is evidence of DVT with occlusive thrombus involving the left subclavian and left axillary veins. Tyson Avelar MD Objective Remarks GENERAL: This is a well-nourished, well-developed patient, in no apparent distress. CARDIOVASCULAR: Regular rate and regular rhythm without murmurs, gallops, or rubs. RESPIRATORY: Clear to auscultation. Breath sounds equal bilaterally. No wheezes , rales, or rhonchi. GASTROINTESTINAL: Abdomen soft, non-tender, nondistended. Normal, active bowel sounds MUSCULOSKELETAL: swelling, erythema over the left upper extremity- seems to be improving. NEURO: Alert & Oriented x4 to person, place, time, situation. Moves all ext x4 Procedures none Medications and IVs Current Medications Sodium Chloride (NS 1000 ml Inj) 1,000 ml @ 1,000 mls/hr Q1H IV Last administered on 02/22/17 19:23; Start 02/22/17 at 19:08; Stop 02/22/17 at 20:07 ; Status DC Sodium Chloride 2 ml 2 ml UNSCH PRN IV FLUSH FLUSH AFTER USING IV ACCESS; Start 02/22/17 at 19:15; Stop 02/22/17 at 21:04; Status DC Vancomycin HCl/ Sodium Chloride (Vancomycin Inj/ NS 250 ml Inj) 250 ml @ 250 mls/hr ONCE STAT IV Last administered on 02/22/17 19:47; Start 02/22/17 at 19 :18; Stop 02/22/17 at 20:17; Status DC Sodium Chloride (NS Flush) 2 ml UNSCH PRN IV FLUSH FLUSH AFTER USING IV ACCESS ; Start 02/22/17 at 21:00 Sodium Chloride (NS Flush) 2 ml BID IV FLUSH Last administered on 02/24/17 21: 54; Start 02/22/17 at 21:00 Acetaminophen (Tylenol) 650 mg Q4H PRN PO TEMP > 100.4 Last administered on 06:19; Start 02/22/17 at 21:00 Ondansetron HCl (Zofran Inj) 4 mg Q6H PRN IVP NAUSEA OR VOMITING; Start at 21:00 Temazepam (Restoril) 15 mg HS PRN PO INSOMNIA Last administered on 02/22/17 23 :03; Start 02/22/17 at 21:00 Acetaminophen (Tylenol) 650 mg Q6H PRN PO PAIN SCALE 1 TO 2 Last administered on 02/23/17 17:49; Start 02/22/17 at 21:00 Naloxone HCl (Narcan Inj) 0.4 mg UNSCH PRN IV SEE LABEL COMMENTS; Start at 21:00 Dextrose (D50w (Vial) Inj) 25 ml UNSCH PRN IV PUSH HYPOGLYCEMIA-SEE COMMENTS; Start 02/22/17 at 21:00 Glucagon (Glucagon Inj) 1 mg UNSCH PRN OTHER HYPOGLYCEMIA-SEE COMMENTS; Start 02/22/17 at 21:00 Insulin Aspart (NovoLOG SUPPLEMENTAL SCALE) 1 ACHS SLIDING SCALE SQ Last administered on 02/24/17 21:52; Start 02/22/17 at 21:00 Aspirin (Ecotrin Ec) 81 mg DAILY PO Last administered on 02/23/17 08:18; Start 02/23/17 at 09:00; Status Hold Atorvastatin Calcium (Lipitor) 40 mg HS PO Last administered on 02/24/17 21:53 ; Start 02/23/17 at 21:00 Brimonidine Tartrate (Alphagan 0.2% Opth Soln) 1 drop BID LEFT EYE Last administered on 02/24/17 21:54; Start 02/23/17 at 09:00 Carbidopa/Levodopa (Sinemet 25-100 Mg) 1 tab HS PO Last administered on 21:53; Start 02/23/17 at 21:00 Clopidogrel Bisulfate (Plavix) 75 mg DAILY PO Last administered on 02/23/17 08 :18; Start 02/23/17 at 09:00; Status Hold Fentanyl (Duragesic 50 Mcg Patch.72 Hr) 50 patch Q72H T-DERMAL ; Start at 23:00; Stop 02/22/17 at 23:00; Status DC Insulin Detemir (Levemir Inj) 24 units HS SQ Last administered on 02/24/17 21: 51; Start 02/23/17 at 21:00 Insulin Detemir (Levemir Inj) 55 units DAILY SQ Last administered on 02/24/17 08:42; Start 02/23/17 at 09:00 Methocarbamol (Robaxin) 500 mg HS PO Last administered on 02/24/17 21:53; Start 02/23/17 at 21:00 Multivitamins (Theragran) 1 tab DAILY PO Last administered on 02/24/17 08:43; Start 02/23/17 at 09:00 Simethicone (Mylicon Chew) 80 mg DAILY PRN CHEW GAS RETENTION; Start 02/22/17 at 22:30 Trazodone HCl (Desyrel) 300 mg HS PO Last administered on 02/24/17 21:54; Start 02/23/17 at 21:00 Artificial Tears (Tears Naturale Opth Soln) 1 drop 5 TIMES A DAY EACH EYE Last administered on 02/25/17 06:19; Start 02/23/17 at 06:00 Lisinopril (Prinivil) 40 mg BID PO Last administered on 02/24/17 21:53; Start 02/23/17 at 09:00 Pantoprazole Sodium (Protonix) 20 mg DAILY PO Last administered on 02/24/17 08 :43; Start 02/23/17 at 09:00 Fentanyl 1 patch 1 patch Q72H T-DERMAL Last administered on 02/22/17 23:02; Start 02/22/17 at 23:00 Pharmacy Profile Note 0 ml @ 0 mls/hr UNSCH OTHER ; Start 02/22/17 at 22:45 Vancomycin HCl 1000 mg/Sodium Chloride 250 ml @ 250 mls/hr Q24H IV ; Start at 09:00; Status UNV Ceftriaxone Sodium/Sodium Chloride (Rocephin Inj/NS Inj) 100 ml @ 200 mls/hr Q24H IV Last administered on 02/24/17 00:10; Start 02/22/17 at 23:00 Miscellaneous Information 1 1 Q72H T-DERMAL Last administered on 02/22/17 23: 00; Start 02/22/17 at 23:00 Vancomycin HCl/ Sodium Chloride (Vancomycin Inj/ NS 250 ml Inj) 250 ml @ 250 mls/hr ONCE ONCE IV Last administered on 02/22/17 23:16; Start 02/22/17 at 23 :00; Stop 02/22/17 at 23:59; Status DC Enoxaparin Sodium (Lovenox Inj) 100 mg Q12HR SQ Last administered on 02/24/17 21:52; Start 02/23/17 at 09:00 Enalaprilat 1.25 mg 1.25 mg Q8H PRN IV PUSH SBP> OR = 180, DBP> OR = 100; Start 02/23/17 at 09:00 Vancomycin HCl/ Sodium Chloride (Vancomycin Inj/ NS 500 ml Inj) 515 ml @ 257.5 mls/ hr Q24H IV Last administered on 02/24/17 03:24; Start 02/24/17 at 04:00; Stop 02/24/17 at 11:56; Status DC Miscellaneous Information SPECIFIC LAB TO BE JUAN... ONCE ONCE .XX ; Start 02/26 at 09:45; Stop 02/26/17 at 09:46 Albuterol Sulfate (Albuterol Neb) 1.25 mg Q2HR NEB PRN NEB SHORTNESS OF BREATH ; Start 02/24/17 at 07:45 Nifedipine 30 mg 30 mg ONCE ONCE PO Last administered on 02/24/17 08:43; Start 02/24/17 at 07:45; Stop 02/24/17 at 07:46; Status DC Vancomycin HCl/ Sodium Chloride (Vancomycin Inj/ NS 500 ml Inj) 515 ml @ 257.5 mls/ hr Q18H IV Last administered on 02/24/17 22:06; Start 02/24/17 at 22:00 Warfarin Sodium (Coumadin) 5 mg ONCE ONCE PO Last administered on 02/25/17 06 :18; Start 02/25/17 at 07:00; Stop 02/25/17 at 07:01; Status DC Patient Medication Teaching (Coumadin Booklet) 1 STK-MED ONCE .ROUTE Last administered on 02/25/17 06:19; Start 02/25/17 at 06:01; Stop 02/25/17 at 06:02 ; Status DC A/P Assessment and Plan A/P Cellulitis left upper extremity- improving Failed outpatient therapy -on vancomycin and Rocephin IV daily pending culture report -will switch to po Abx upon discharge -Pain management accordingly DVT of the left upper extremity left upper extremity doppler with DVT with occlusive thrombus involving the left subclavian and left axillary veins. continue with subq Lovenox- . started on Coumadin consulted hematology hypoxemia; resolved- now ambulating with no dyspnea or hypoxemia CXR with no acute abnormality now stable on RA Mild acute renal failure-improved History of diabetes type 2 Resumed outpatient regimen, start insulin sliding scale with fingerstick blood glucose monitoring history of CVA stopped aspirin and plavix since he is on full anticoagulation hypertension-overall better- continue lisinopril- DVT prophylaxis: Lovenox Discharge Planning possible dc home later this evening or in am. d/w the case management and the patient regarding outpatient lovenox therapy. will have C. see med list. d/w the RN. f/u with pcp and hematology. time spent 31 min. Shereen Thorpe MD Feb 25, 2017 08:06 Shereen Thorpe MD Feb 25, 2017 08:06
--- NOTE | 2017-02-25 08:08 | HHI.FF ---
Face to Face Verification Diagnosis: (1) Cellulitis of left upper extremity (2) Deep vein thrombosis (DVT) of left upper extremity Home Health Nursing Order: Medical education Signs/symptoms of disease process Medication education-adverse effect Instructions: PT/INR monitoring. to assist with Lovenox administration. I have seen patient Davin Farrar on 02/25/17. My clinical findings support the need for the requested home health care services because: Limited ability to care for self I certify that my clinical findings support that this patient is homebound because: Unsafe to leave home unassisted Shereen Thorpe MD Feb 25, 2017 08:07
[2017-02-25] MEDS ORDERED: ENOX100P SQ (08:10)
[2017-02-25] MEDS ORDERED: COUM5TAB PO (08:10)
[2017-02-25] MEDS ORDERED: CLIN1CAP6 PO (08:10)
--- NOTE | 2017-02-25 08:11 | HHI.DCPOC ---
Discharge Care Plan Diagnosis: (1) Deep vein thrombosis (DVT) of left upper extremity (2) Cellulitis of left upper extremity Your Health Problems Are: Inflammation Swelling Goals to Promote Your Health * To prevent worsening of your condition and complications * To maintain your health at the optimal level Directions to Meet Your Goals Take your medications as prescribed Follow your dietary instruction Follow activity as directed Keep your appointments as scheduled Take your immunizations and boosters as scheduled If your symptoms worsen call your PCP, if no PCP go to Urgent Care Center or Emergency Room Smoking is Dangerous to Your Health. Avoid second hand smoke Call the 24-hour hour crisis hotline for domestic abuse at Shereen Thorpe MD Feb 25, 2017 08:11
--- NOTE | 2017-02-25 08:12 | HHI.DS ---
Discharge Summary Admission Date Feb 22, 2017 at 20:56 Discharge Date: Feb 25, 2017 Admitting Diagnosis Cellulitis failed outpt managment (1) Cellulitis of left upper extremity ICD Code: L03.114 Diagnosis: Principal (2) DM (diabetes mellitus) ICD Code: E11.9 Diagnosis: Secondary (3) HTN (hypertension) ICD Code: I10 Diagnosis: Secondary (4) Hypothyroidism ICD Code: E03.9 Diagnosis: Secondary (5) History of TIA (transient ischemic attack) ICD Code: Z86.73 Diagnosis: Secondary (6) COPD (chronic obstructive pulmonary disease) ICD Code: J44.9 Diagnosis: Secondary (7) Acute renal failure ICD Code: N17.9 Diagnosis: Secondary (8) Deep vein thrombosis (DVT) of left upper extremity ICD Code: I82.622 Diagnosis: Principal Procedures none Brief History - From Admission 71-year-old male with a history of diabetes type 2, CVA presented to the ED for evaluation of the history of worsening painful and swollen left upper extremity. Patient states the morning of Thursday he may have been bitten by a bug versus scrub versus scrapped by a plant. And the following morning he noticed a blister on his arm which progresses to swollen painful and redness with extension of erythema to his forearm on 02/20/16 he was seen [place] and was given an antibiotic shots and prescribed a by mouth Bactrim DS for which he took 1 tablet twice a day 2 days however without any improvement. He has no numbness or tingling associated. He also denies any febrile episode CBC/BMP: 02/24/17 0558 02/24/17 0558 Significant Findings Laboratory Tests Test 02/22/17 02/22/17 02/23/17 02/24/17 19:30 19:45 05:30 05:58 Platelet Count 142 TH/MM3 120 TH/MM3 127 TH/MM3 (150-450) (150-450) (150-450) Neutrophils (%) (Auto) 75.9 % (16.0-70.0) Monocytes (%) (Auto) 8.6 % (0.0-8.0) 9.8 % (0.0-8.0) 11.3 % (0.0-8.0) Eosinophils (%) (Auto) 5.4 % (0.0-4.0) 6.7 % (0.0-4.0) 6.2 % (0.0-4.0) Lymphocytes # (Auto) 0.6 TH/MM3 0.9 TH/MM3 0.7 TH/MM3 (1.0-4.8) (1.0-4.8) (1.0-4.8) Creatinine 1.31 MG/DL (0.60-1.30) Estimat Glomerular Filtration 54 ML/MIN (>89) 66 ML/MIN (>89) 65 ML/MIN (>89) Rate Random Glucose 126 MG/DL 174 MG/DL (74-106) (74-106) Calcium Level 8.4 MG/DL (8.5-10.1) Urine Protein 30 mg/dL (NEG-TRACE) Urine Glucose (UA) 150 mg/dL (NEG) Urine Mucus FEW /lpf (OCC) Total Protein 6.3 GM/DL (6.4-8.2) Imaging Last Impressions Chest X-Ray 02/24/17 0000 Signed Impressions: Service Date/Time: Friday, February 24, 2017 07:34 - CONCLUSION: Underinflated examination without an acute cardiopulmonary abnormality identified. Anselmo Lord MD Upper Extremity Ultrasound 02/22/17 0000 Signed Impressions: Service Date/Time: Wednesday, February 22, 2017 23:14 - CONCLUSION: There is evidence of DVT with occlusive thrombus involving the left subclavian and left axillary veins. Tyson Avelar MD PE at Discharge GENERAL: This is a well-nourished, well-developed patient, in no apparent distress. CARDIOVASCULAR: Regular rate and regular rhythm without murmurs, gallops, or rubs. RESPIRATORY: Clear to auscultation. Breath sounds equal bilaterally. No wheezes , rales, or rhonchi. GASTROINTESTINAL: Abdomen soft, non-tender, nondistended. Normal, active bowel sounds MUSCULOSKELETAL: swelling, erythema over the left upper extremity- seems to be improving. NEURO: Alert & Oriented x4 to person, place, time, situation. Moves all ext x4 Hospital Course Cellulitis left upper extremity- improving Failed outpatient therapy -on vancomycin and Rocephin IV daily pending culture report -will switch to po Abx upon discharge -Pain management accordingly DVT of the left upper extremity left upper extremity doppler with DVT with occlusive thrombus involving the left subclavian and left axillary veins. continue with subq Lovenox- . started on Coumadin consulted hematology hypoxemia; keep on oxygen to keep O2 sat > 90%- neb treatment as needed- resolved CXR with no acute abnormality now stable on RA Mild acute renal failure-improved History of diabetes type 2 Resumed outpatient regimen, start insulin sliding scale with fingerstick blood glucose monitoring history of CVA stopped aspirin and plavix since he is on full anticoagulation hypertension-overall better- continue lisinopril- DVT prophylaxis: Lovenox Pt Condition on Discharge: Stable Discharge Disposition: Disch w/ Home Health Serv Discharge Time: > 30 minutes Discharge Instructions DIET: Follow Instructions for: Heart Healthy Diet, Diabetic Diet Activities you can perform: Regular-No Restrictions Follow up Referrals: Oncology PCP Follow-up New Medications: Clindamycin (Clindamycin) 300 Mg Cap 300 MG PO Q6H Infection Days 7 Ref 0 CAP Warfarin (Coumadin) 5 Mg Tab 5 MG PO DAILY Blood Clot Prevention #30 Ref 0 TAB Enoxaparin Inj (Lovenox Inj) 100 Mg/Ml Syr 100 MG SQ Q12HR dvt Days 4 Ref 0 INJECTION Continued Medications: Atorvastatin (Atorvastatin) 40 Mg Tab 40 MG PO HS Cholesterol Management #30 Ref 0 TAB Brimonidine Opth Drops (Brimonidine Opth Drops) 0.2% Soln 1 DROP LEFT EYE BID Intraocular pressure #1 Ref 0 BOTTLE Carbidopa-Levodopa (Sinemet) 25-100 Mg Tab 1 TAB PO HS Parkinson Disease Mgmt #90 Ref 0 TAB Carboxymethylcellulose Sodium Opth Drops (Refresh Liquigel Opth Drops) 1% Drops 1 DROP EACH EYE 5 TIMES A DAY Cholecalciferol (Vitamin D3) 1,000 Unit Tab 1000 UNITS PO BID Nutritional Supplement #1 Ref 0 BOTTLE Diphenhydramine (Benadryl Allergy) 25 Mg Tab 25 MG PO DAILY PRN ALLERGIES Ref 0 TAB Fentanyl Patch 72 HR (Duragesic Patch 72 HR) 50 Mcg/Hr Patch 50 MCG T-DERMAL Q72H Remove old patch when new one placed. Pain Management #10 Ref 0 PATCH Insulin Aspart Inj (Novolog Inj) 1,000 Unit/10 Ml Vial 12 UNITS SQ TIDAC Blood Sugar Management #10 Ref 0 ML Insulin Glargine Inj (Lantus Inj) 1,000 Unit/10 Ml Vial 24 UNITS SQ HS Blood Sugar Management Ref 0 VIAL Insulin Glargine Inj (Lantus Inj) 1,000 Unit/10 Ml Vial 55 UNITS SQ DAILY IN THE MORNING Blood Sugar Management Ref 0 VIAL Levothyroxine (Levothyroxine) 75 Mcg Tab 75 MCG PO DAILY Thyroid #30 Ref 0 TAB Lisinopril (Lisinopril) 40 Mg Tab 40 MG PO BID Blood Pressure Management #30 Ref 0 TAB Methocarbamol (Robaxin) 500 Mg Tab 500 MG PO HS Muscle Spasm Ref 0 TAB Multiple Vitamin (Multi Vitamin) 1 Tab Tab 1 TAB PO DAILY TAB Omeprazole (Omeprazole) 20 Mg Tab 20 MG PO DAILY #30 Ref 0 TAB Simethicone (Simethicone) 80 Mg Chw 80 MG CHEW DAILY PRN GAS RETENTION Ref 0 TAB Testosterone Enanthate Inj (Testosterone Enanthate Inj) 200 Mg/Ml Inj 200 MG IM Q30D Hormone Replacement #1 Ref 0 VIAL Trazodone (Trazodone) 300 Mg Tab 300 MG PO HS Insomnia #30 Ref 0 TAB Discontinued Medications: Aspirin DR (Aspir-81) 81 Mg Tabdr 81 MG PO DAILY Clopidogrel (Plavix) 75 Mg Tab 75 MG PO DAILY Blood Clot Prevention #30 Ref 0 TAB Naproxen (Naprosyn) 500 Mg Tab 500 MG PO BID #60 Ref 0 TAB Sulfamethoxazole-Trimethoprim (Bactrim DS) 800-160 Mg Tab 1 TAB PO BID Infection #20 Ref 0 TAB Shereen Thorpe MD Feb 25, 2017 08:12
--- NOTE | 2017-02-25 08:44 | MB ---
cc: BILLY ERIC DATE OF CONSULTATION: 02/24/2017 DATE OF : 1945 REASON FOR CONSULTATION Patient with occlusive thrombus in the left subclavian and left axillary vein. CHIEF COMPLAINT Left upper extremity swelling and pain. HISTORY OF PRESENT ILLNESS This is a 71-year-old male who has a past medical history of diabetes type 2, hypertension, history of CVA, COPD, who presented to the emergency room with left upper extremity swelling and worsening pain. The patient stated that he woke of last Thursday with swelling in his arm. He states that may have been bit by some kind of bug on his hand. He was also working in the yard at that time and states that he may have been scratched by a plant. He noticed a blister on his left hand in the dorsal area. He felt some swelling and pain in the area. Subsequently the pain and swelling extended to his forearm. He went [facility] and saw his primary care physician. He was given IV antibiotics and oral Bactrim DS prescription. His symptoms did not improve and he presented to the emergency department at the [facility]. Upon arrival he underwent a Doppler ultrasound of the left arm. There was occlusive thrombus involving the left subclavian and left axillary vein. The jugular vein was patent. The brachial vein in the left upper arm was also patent. The ulnar and radial veins were patent as well. The patient was admitted to the hospital. He was started on anticoagulation with Lovenox and is currently receiving 100 mg subcu q.12h. He denies smoking cigarettes. He does not have any history of alcohol abuse. No substance abuse. REVIEW OF SYSTEMS A comprehensive 14-point review of systems was completed which is negative except as described in the HPI. PAST MEDICAL HISTORY 1. Hypertension. 2. Diabetes. 3. Glaucoma. 4. Gastroesophageal reflux disease. 5. Hypothyroidism. 6. History of CVA. 7. COPD. PAST SURGICAL HISTORY 1. Pilonidal cyst I&D. 2. Intramedullary nailing of the right tibia. 3. Bilateral eye surgery. 4. Surgery for deviated nasal septum. MEDICATIONS 1. Vancomycin. 2. DuoNeb. 3. Lipitor 40 mg p.o. q.h.s. 4. Sinemet, one tablet p.o. q.h.s. 5. Robaxin 500 mg p.o. q.h.s. 6. Trazodone 300 mg p.o. q.h.s. 7. Alphagan 0.2% ophthalmic solution b.i.d. left thigh. 8. Levemir injection, 55 units q. daily. 9. Multivitamins, one tablet p.o. daily. 10.Lisinopril 40 mg p.o. b.i.d. 11.Pantoprazole 20 mg p.o. daily. 13.Lovenox 100 mg subcu t.i.d. 14.Duragesic patch q.72h. 15.Ceftriaxone q.24h., two grams. 16.Simethicone 80 mg p.o. daily p.r.n. 17.Ondansetron 4 mg IV q.6h. p.r.n. 18.Temazepam 15 mg p.o. q.h.s. p.r.n. ALLERGIES No known drug allergies. FAMILY HISTORY Reviewed and noncontributory to this admission. SOCIAL HISTORY He does not smoke cigarettes. No alcohol abuse. No illicit drug use. PHYSICAL EXAMINATION VITAL SIGNS: Blood pressure 144/76, pulse in the 80s, temperature 97.2, respiratory rate 14, O2 sats are 93% on room air. GENERAL: A well-developed, well-nourished male in no apparent distress. HEENT: Pupils are equal, round and reactive to light. Extraocular movements intact. No oral thrush. No oral lesion. NECK: Supple. No JVD. No bruits. No lymphadenopathy. CHEST: Clear to auscultation bilaterally. CARDIAC: S1, S2, regular rate and rhythm. ABDOMEN: Soft, nontender, nondistended. Bowel sounds are present. EXTREMITIES: Left upper extremity swelling is noted. There is edema of the forearm. 2+ pulses in bilateral upper and lower extremities. NEUROLOGIC: No focal deficit. PSYCHIATRIC: Mood and affect is appropriate. LABORATORY WBC 5.2, hemoglobin 14, MCV 86.3, platelet count 127. Serum chemistries show sodium of 137, potassium 4.0, chloride 105, CO2 25.6, anion gap 6, BUN 14, creatinine 1.1, GFR 65, calcium 8.7, total bilirubin 0.3, AST 17, ALT 27, alk phos 80, total protein 6.3, albumin 3.6. IMAGING Reviewed in the EMR. Doppler ultrasound of the upper extremities is reviewed. Chest x-ray was also reviewed and did not show any acute cardiopulmonary process. ASSESSMENT AND PLAN This is a 71-year-old male with a history of hypertension, hyperlipidemia, gastroesophageal reflux disease, hypothyroidism, history of CVA and COPD, who presents with left arm swelling and pain. He was found to have an acute DVT of the left arm based on a Doppler ultrasound. Left upper extremity DVT involving the left subclavian and left axillary vein: This appears to be have been occurred in a provoked situation with injury to the hand. He has not had any other trauma to his left arm. The patient is on anticoagulation with Lovenox. I agree with current management. I had a long discussion with this patient. [facility] I discussed the option of Coumadin versus new oral anticoagulant such as Xarelto or Eliquis. The patient does not think that the [facility] will pay for the Xarelto or Eliquis. I would recommend starting this patient on Coumadin. He will need to remain on Lovenox until his INR is therapeutic between 2 and 3 for at least 48 hours. The patient is comfortable with giving himself Lovenox injections. He says that he already gives himself insulin injections and he would not have any problem giving himself these injections. The patient will need to follow-up with his primary care physician after discharge. He will need to have his INR checked 2-3 days after discharge and the Coumadin dose would have to be adjusted accordingly. I discussed this at length with the patient. I will start this patient on Coumadin today. The patient is cleared for discharge from a hematology standpoint. Thank you for allowing me to participate in the care of this patient. I will continue to follow this patient along. MD CHRISTINA Dahl/NGOC /12:18 AM /8:19 AM
[2017-02-25] MEDS: SODIUM CHLORIDE 0.9% FLUSH 10 ML FLUSH IV FLUSH SCH (10:35)
[2017-02-25] MEDS: ENOXAPARIN SODIUM 100 MG/ML SYRINGE SQ SCH (10:35)
[2017-02-25] MEDS: LISINOPRIL 20 MG TAB PO SCH (10:35)
[2017-02-25] MEDS: MULTIVITAMIN TAB PO SCH (10:35)
[2017-02-25] MEDS: PANTOPRAZOLE SOD 20 MG DELAYED RELEASE TAB PO SCH (10:35)
[2017-02-25] MEDS: BRIMONIDINE TARTRATE 0.2% OPHT SOLN 5 ML BTL LEFT EYE SCH (10:36)
[2017-02-25] MEDS: INSULIN DETEMIR 100 UNITS/ML VIAL SQ SCH (10:36)
[2017-02-25 11:15] LABS: PROTHROMBIN TIME - PATIENT 10.7 SEC (9.8-11.6)
[2017-02-25 11:20] VITALS: BP 151/89; PULSE 88; RESP 16; TEMP 97.8; O2SAT 95
[2017-02-25] MEDS ORDERED: FLUO20CA4 PO (12:38)
[2017-02-25] MEDS: fentaNYL 50 MCG/HR PATCH T-DERMAL SCH (13:04)
[2017-02-26] MEDS ORDERED: PHARMACY ORDERED LAB ONE (09:45)
== END 2017-02-25 15:19 | disposition home health service (06) | DRG 300 ==
LOC: NEPC 18:02 → NEDA 20:56 → NEPGCP 21:42
PROVIDERS: ADMIT Internal Medicine; ATTEND Internal Medicine
DX: I82.A12 Acute embolism and thrombosis of left axillary vein (principal); L03.114 Cellulitis of left upper limb; N17.9 Acute kidney failure, unspecified; J44.9 Chronic obstructive pulmonary disease, unspecified; I82.B12 Acute embolism and thrombosis of left subclavian vein; E11.9 Type 2 diabetes mellitus without complications; I10 Essential (primary) hypertension; F32.9 Major depressive disorder, single episode, unspecified; Z86.73 Personal history of transient ischemic attack (TIA), and cerebral infarction without residual deficits; H91.90 Unspecified hearing loss, unspecified ear; M54.9 Dorsalgia, unspecified; G89.29 Other chronic pain; E78.00 Pure hypercholesterolemia, unspecified; F41.9 Anxiety disorder, unspecified; K21.9 Gastro-esophageal reflux disease without esophagitis; H40.9 Unspecified glaucoma; Z79.4 Long term (current) use of insulin; E03.9 Hypothyroidism, unspecified; I25.10 Atherosclerotic heart disease of native coronary artery without angina pectoris; E78.5 Hyperlipidemia, unspecified; R09.02 Hypoxemia
CPT/HCPCS: 71010; 80053; 81001; 82565; 82948; 83605; 85025; 85610; 93971; 96374; J0696; J1650; J1815; J3370; J7030; J7040; J7050